=== PATIENT | female | born 1950 | race Caucasian/White ===

== ENCOUNTER → 2016-04-09 | Day surgery (SDC) | payer MEDICARE ==
[~2016-04-09] MED LIST: ALPR.25 PO; BUPIVACAINE HCL PF 0.75% 30 ML VIAL ONE; BUPR300T PO; COEN50CH CHEW; ESTR1TAB PO; LYRI100C PO; MULT1CHW33 PO; PROPOFOL 200 MG/20 ML AMP IV ONE; ROSU5 PO; SALM50I INH; TRIAMCINOLONE ACETONIDE 40 MG/ML VIAL NB ONE; WELLBUTRIN PO; methylPREDNISolone ACETATE 40 MG/ML VIAL I-LESIONAL ONE
--- NOTE | 2016-04-09 09:55 | M6 ---
cc: JOANNE SANTORO M.D. DATE 04/09/2016 DATE OF 1950 PROCEDURE Right T12-L1 transforaminal injection. History and physical was completed and signed. Consent was signed. Procedure site was marked. Medications were listed and reconciled. Pain score was recorded. Allergies were noted. Time out was taken. Fluoroscopy time was recorded where applicable. Sedation was administered or directed by Dr. Santoro. The patient was given oxygen. The patient was monitored by a registered nurse. Total procedure time was greater than 15 minutes. PROCEDURE NOTE IV was started. Blood pressure cuff, pulse oximeter and EKG were applied. The patient was placed in the prone position on a Kee table, sedated with small amounts of propofol titrated to effect. Vital signs were monitored and remained stable throughout the procedure. The thoracic area was prepped with alcohol and 10% Betadine solution, draped with sterile drapes. Fluoroscopy was used to visualize the T12-L1 neural foramen. Then a 3-1/2-inch, 22-gauge Chiba needle was advanced to make bony contact with the right twelfth rib and then gently redirected off the inferior margin of the rib. There was negative aspiration for blood or any other type of fluid and the patient was given 2 mL of Marcaine 0.75%, 20 mg of Kenalog and 20 mg of Depo-Medrol. Following the procedure the patient was taken to the recovery room with stable vital signs, neurologically intact. WMD MYKEL Rodriguez/DELTA /9:46 AM /9:51 AM
== END | disposition home or self-care (01) ==
LOC: PHSDC 07:58
PROVIDERS: ATTEND Pain Medicine Interventional Pain Medicine
DX: M54.14 Radiculopathy, thoracic region (principal)
CPT/HCPCS: 64479; 77003; 99152; J1030; J3301

== ENCOUNTER → 2016-05-30 | Outpatient (CLI) | payer MEDICARE ==
[~2016-05-30] MED LIST changes: -BUPIVACAINE HCL PF 0.75% 30 ML VIAL ONE; -PROPOFOL 200 MG/20 ML AMP IV ONE; -TRIAMCINOLONE ACETONIDE 40 MG/ML VIAL NB ONE; -WELLBUTRIN PO; -methylPREDNISolone ACETATE 40 MG/ML VIAL I-LESIONAL ONE
[2016-05-30 09:54] LABS: ALKALINE PHOSPHATASE 86 U/L (45-117); ALT (GPT) 38 U/L (10-53); ANION GAP 7 MEQ/L (5-15); AST (GOT) 24 U/L (15-37); BICARBONATE 28.4 MEQ/L (21.0-32.0); BLOOD UREA NITROGEN 10 MG/DL (7-18); CHLORIDE 108 MEQ/L (98-107); GLOMERULAR FILTRATION RATE 60 ML/MIN (>89); GLUCOSE,FASTING 104 MG/DL (74-99); HDL CHOLESTEROL 77.1 MG/DL (40.0-60.0); LDL CHOLESTEROL 88 MG/DL (0-99); POTASSIUM 4.1 MEQ/L (3.5-5.1); SODIUM (NA) 143 MEQ/L (136-145); TOTAL BILIRUBIN ADULT 0.5 MG/DL (0.2-1.0)
== END ==
LOC: PLAB 07:09
PROVIDERS: ATTEND Internal Medicine Cardiovascular Disease
DX: R07.89 Other chest pain (principal); E78.5 Hyperlipidemia, unspecified; I25.10 Atherosclerotic heart disease of native coronary artery without angina pectoris; Z72.0 Tobacco use
CPT/HCPCS: 36415; 80053; 80061; 82306

== ENCOUNTER → 2016-06-22 | Day surgery (SDC) | payer MEDICARE ==
[~2016-06-22] MED LIST changes: +BUPIVACAINE HCL PF 0.75% 30 ML VIAL ONE; +PROPOFOL 200 MG/20 ML AMP IV ONE; +TRIAMCINOLONE ACETONIDE 40 MG/ML VIAL NERV BLOCK ONE; +methylPREDNISolone ACETATE 40 MG/ML VIAL I-LESIONAL ONE
--- NOTE | 2016-06-24 20:01 | M6 ---
cc: JOANNE SANTORO M.D. DATE: 06/22/2016. DATE OF : 1950 PROCEDURE PERFORMED: Fluoroscopically-guided right T12 selective nerve root injection. DESCRIPTION OF THE PROCEDURE IN DETAIL: History and physical was completed and signed. Consent was signed. Procedure site was marked. Medications were listed and reconciled. Pain score was recorded. Allergies were noted. Time out was taken. Fluoroscopy time was recorded where applicable. Sedation was administered or directed by Dr. Santoro. The patient was given oxygen. The patient was monitored by a registered nurse. Total procedure time was greater than 15 minutes. IV was started, blood pressure cuff, pulse oximeter and EKG were applied. The patient was placed in the prone position on a Kee table and sedated with small amounts of propofol titrated to effect. Vital signs were monitored and remained stable throughout the procedure. The thoracic and lumbar areas were prepped with alcohol and 10% Betadine solution and draped with sterile drapes. Fluoroscopy was used to visualize the right twelfth rib. Then approximately 5 cm from the midline, a 3-1/2-inch 22-gauge Chiba needle was advanced down to the rib and then gently redirected off the inferior border of the rib. There was negative aspiration for blood or any other type of fluid and the patient was given 3 mL of Marcaine 0.75% which contained 20 mg of Depo-Medrol and 20 mg of Kenalog. Following the procedure, the patient was taken to the recovery room with stable vital signs neurologically intact. She will be evaluated immediately and with followup to determine if she has a subjective decrease her usual pain and a corresponding objective increase her functional capabilities. 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 W. MD MYKEL Mukherjee/YUAN /8:15 AM /7:57 PM
== END | disposition home or self-care (01) ==
LOC: PHSDC 07:03
PROVIDERS: ATTEND Pain Medicine Interventional Pain Medicine
DX: M54.6 Pain in thoracic spine (principal)
CPT/HCPCS: 64479; 99152; J1030; J3301

== ENCOUNTER → 2016-09-12 | Day surgery (SDC) | payer MEDICARE ==
[~2016-09-12] MED LIST changes: +AMOX250C3 PO; -BUPIVACAINE HCL PF 0.75% 30 ML VIAL ONE; +CALTCHW5 PO; +LIDOCAINE HCL 1% 30 ML VIAL INFIL ONE; +MEPERIDINE HCL 25 MG/ML VIAL IV ONE; +MIDAZOLAM HCL 2 MG/2 ML VIAL IV ONE; +SODIUM CHLORIDE 0.9% 10 ML VIAL ONE; -methylPREDNISolone ACETATE 40 MG/ML VIAL I-LESIONAL ONE
--- NOTE | 2016-09-12 08:50 | M6 ---
cc: JOANNE SANTORO M.D. DATE: 09/12/2016 DATE OF : 1950 PROCEDURE Radiofrequency rhizotomy right T12 dorsal root ganglion. PROCEDURE NOTE History and physical was completed and signed. Consent was signed. Procedure site was marked. Medications were listed and reconciled. Pain score was recorded. Allergies were noted. Timeout was taken. Fluoroscopy time was recorded where applicable. Sedation was administered or directed by Dr. Santoro. The patient was given oxygen. The patient was monitored by a registered nurse. Total procedure time was greater than 15 minutes. An IV was started, blood pressure cuff, pulse oximeter and EKG were applied. The patient was placed in the prone position on a Kee table, sedated with small amounts of propofol and Demerol titrated to effect. Vital signs were monitored and remained stable throughout the procedure. The thoracic area was prepped with alcohol and 10% Betadine solution, draped with sterile drapes. Fluoroscopy was used in both the AP and lateral projection to visualize the T12-L1 neural foramen. The skin was infiltrated with 1% Xylocaine using a 27-gauge needle. Then an insulated 20-gauge radiofrequency needle with a 5 mm tip was advanced into the dorsal cephalad quadrant of the neural foramen. Thermal lesions were made at 69 degrees x100 seconds. Two lesions were made. This was followed by injection of 40 mg of Kenalog. Following this the patient was taken to the recovery room with stable vital signs, neurologically intact. W. MD MYKEL Mukherjee/JEAN CLAUDE /7:49 AM /8:42 AM
--- NOTE | 2016-09-12 14:05 | RADRPT ---
EXAM DATE/TIME: 09/12/2016 07:52 [facility] COMPARISON: No previous studies available for comparison. INDICATIONS : Radio Frequency lesioning right T12 nerve root block MEDICAL HISTORY : None. SURGICAL HISTORY : None. ENCOUNTER: Initial ACUITY: 1 day PAIN SCORE: Non-responsive. LOCATION: Right Thoracic FINDINGS: 2 fluoroscopic hold images of the thoracolumbar spine. Assuming the last rib-bearing vertebral body i s T12. Radiofrequency probe projects over the cephalad aspect of the right T12-L1 neuroforamina. CONCLUSION: 1. Intraprocedural fluoroscopic localization images, as above. Eliseo Yoder MD on September 12, 2016 at 14:01 Board Certified Radiologist. This report was verified electronically.
== END | disposition home or self-care (01) ==
LOC: PHSDC 06:33
PROVIDERS: ATTEND Pain Medicine Interventional Pain Medicine
DX: M54.6 Pain in thoracic spine (principal)
CPT/HCPCS: 64633; 72070; 99152; J2175; J2250; J3301

== ENCOUNTER 2016-09-17 09:58 | Emergency (ER) | payer MEDICARE ==
[~2016-09-17] VITALS: Ht 157.5 cm; Wt 65.0 kg
[~2016-09-17 09:58] MED LIST changes: -LIDOCAINE HCL 1% 30 ML VIAL INFIL ONE; -MEPERIDINE HCL 25 MG/ML VIAL IV ONE; -MIDAZOLAM HCL 2 MG/2 ML VIAL IV ONE; -PROPOFOL 200 MG/20 ML AMP IV ONE; -SODIUM CHLORIDE 0.9% 10 ML VIAL ONE; -TRIAMCINOLONE ACETONIDE 40 MG/ML VIAL NERV BLOCK ONE
[2016-09-17 10:04] VITALS: BP 138/62; PULSE 75; RESP 16; TEMP 98.1; O2SAT 92
[2016-09-17] MEDS ORDERED: SODIUM CHLORIDE 0.9% FLUSH 10 ML FLUSH IV FLUSH PRN (10:45)
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
[2016-09-17 10:53] VITALS: O2SAT 98
[2016-09-17 10:59] LABS: AUTOMATED NEUTROPHIL # 4.1 TH/MM3 (1.8-7.7); BASOPHIL # 0.1 TH/MM3 (0-0.2); BASOPHIL % 1.3 % (0.0-2.0); EOSINOPHIL # 0.1 TH/MM3 (0-0.4); EOSINOPHIL % 1.5 % (0.0-4.0); HEMATOCRIT 46.5 % (35.0-46.0); HEMO FLAGS DIFF FINAL; LYMPH % 31.2 % (9.0-44.0); LYMPHOCYTE # 2.1 TH/MM3 (1.0-4.8); MEAN CELL VOLUME 91.9 FL (80.0-100.0); MEAN CORPUSCULAR HEMOGLOBIN 31.3 PG (27.0-34.0); MEAN CORPUSCULAR HGB CONC 34.1 % (32.0-36.0); MONO % 6.2 % (0.0-8.0); NEUT % 59.8 % (16.0-70.0); PLATELET COUNT 266 TH/MM3 (150-450); RED BLOOD COUNT 5.06 MIL/MM3 (4.00-5.30); RED CELL DISTRIBUTION WIDTH 11.6 % (11.6-17.2); WHITE BLOOD COUNT 6.8 TH/MM3 (4.0-11.0)
[2016-09-17 11:07] LABS: CHLORIDE 106 MEQ/L (98-107); POTASSIUM 3.4 MEQ/L (3.5-5.1); SODIUM (NA) 140 MEQ/L (136-145)
[2016-09-17 11:11] LABS: ANION GAP 4 MEQ/L (5-15); BLOOD UREA NITROGEN 11 MG/DL (7-18)
[2016-09-17 11:13] LABS: ALT (GPT) 37 U/L (10-53); AST (GOT) 25 U/L (15-37)
[2016-09-17 11:14] LABS: GLOMERULAR FILTRATION RATE 64 ML/MIN (>89)
[2016-09-17 11:15] LABS: TOTAL BILIRUBIN ADULT 0.6 MG/DL (0.2-1.0)
[2016-09-17 11:16] LABS: ALKALINE PHOSPHATASE 69 U/L (45-117)
[2016-09-17] MEDS ORDERED: IOHEXOL 350 MG/ML 10 ML VIAL (for RAD DIAG) IV ONE (11:38)
[2016-09-17 11:41] LABS: BLOOD, URINE NEG (NEG); GLUCOSE,URINE NEG (NEG); KETONE, URINE NEG (NEG); NITRITE,URINE NEG (NEG)
[2016-09-17 11:43] LABS: COMMENT (UR) CULT NOT INDICATED; CULTURE IF INDICATED CULT NOT INDICATED; METHOD OF COLLECTION CLEAN CATCH; SQUAMOUS EPITHELIAL CELL URINE 0-5 /hpf (0-5); URINE COLOR YELLOW (YELLW/STRAW)
--- NOTE | 2016-09-17 11:53 | RADRPT ---
EXAM DATE/TIME: 09/17/2016 11:25 [facility] COMPARISON: CT ABDOMEN & PELVIS W CONTRAST, August 16, 2012, 7:53. INDICATIONS : Right mid abdominal pressure when standing. IV CONTRAST: 90 cc Omnipaque 350 (iohexol) IV ORAL CONTRAST: No oral contrast ingested. RADIATION DOSE: 12.87 CTDIvol (mGy) MEDICAL HISTORY : Hypercholesterolemia. SURGICAL HISTORY : Tubal ligation. ENCOUNTER: Initial ACUITY: 4 - 6 days PAIN SCALE: 4/10 LOCATION: Right middle TECHNIQUE: Volumetric scanning of the abdomen and pelvis was performed. Using automated exposure control and ad justment of the mA and/or kV according to patient size, radiation dose was kept as low as reasonably achievable to obtain optimal diagnostic quality images. DICOM format image data is available electro nically for review and comparison. FINDINGS: LOWER LUNGS: Minimal bibasilar parenchymal changes are evident. LIVER: Homogeneous density without lesion. There is no dilation of the biliary tree. No calcified gallston es. SPLEEN: Normal size without lesion. PANCREAS: Within normal limits. ADRENAL GLANDS: Within normal limits. KIDNEYS: Normal in size and shape. There is no mass, stone, or hydronephrosis.. VASCULAR: There is no aortic aneurysm. BOWEL/MESENTERY: The stomach, small bowel, and colon demonstrate no acute abnormality. There is no free intraperitone al air or fluid. RETROPERITONEUM: There is no lymphadenopathy. BLADDER: No wall thickening or mass. REPRODUCTIVE: Uterus is prominent with prominent endometrium in a 66 year-old. Extensive prominent ovarian veins are evident. ABDOMINAL WALL: Within normal limits. INGUINAL: There is no lymphadenopathy or hernia. MUSCULOSKELETAL: Mild degenerative changes are seen in the lower lumbar spine. Congenital variation. CONCLUSION: Negative for acute process. I do not see an etiology for the abdominal pain. Minimal bibasilar pare nchymal changes. Neftali Dumont MD FACR on September 17, 2016 at 11:47 Board Certified Radiologist. This report was verified electronically.
[2016-09-17 12:16] VITALS: BP 141/71; PULSE 74; RESP 16; O2SAT 92
== END 2016-09-17 12:36 | disposition home or self-care (01) ==
LOC: PHED 09:58
DX: R10.33 Periumbilical pain (principal); Z87.891 Personal history of nicotine dependence
CPT/HCPCS: 74177; 80053; 81001; 83690; 85025; 99284; Q9967

== ENCOUNTER → 2016-11-05 | Outpatient (CLI) | payer MEDICARE ==
[~2016-11-05] MED LIST changes: -ALPR.25 PO; -AMOX250C3 PO; -CALTCHW5 PO; -COEN50CH CHEW; -MULT1CHW33 PO; +ROBA500T PO
== END ==
LOC: PLAB 10:21
PROVIDERS: ATTEND Family Medicine
DX: E55.9 Vitamin D deficiency, unspecified (principal)
CPT/HCPCS: 36415; 82306

== ENCOUNTER → 2016-11-07 | Outpatient (CLI) | payer MEDICARE ==
--- NOTE | 2016-11-16 11:26 | RSPPFT ---
DATE OF PROCEDURE: 11/07/16 COMMENTS: VOLUMES DYNAMIC: FVC normal; FEV1 mildly reduced. STATIC: RV very mildly increased; FRC and TLC normal. FLOWS: FEV1% moderately reduced; FEF 25-75 severely reduced. DIFFUSION; Moderately reduced. FLOW VOLUME LOOP: Pattern of variable intrathoracic airways obstruction. IMPRESSION: Moderate obstructive ventilatory defect with reduction in diffusion consistent with emphysema. There is improvement post-bronchodilator. Airways resistance is increased.
== END ==
LOC: HRSP 08:45
PROVIDERS: ATTEND Internal Medicine
DX: J44.9 Chronic obstructive pulmonary disease, unspecified (principal)
CPT/HCPCS: 94060; 94620; 94726; 94729

== ENCOUNTER 2016-11-28 12:08 | Emergency (ER) | payer MEDICARE ==
[~2016-11-28] VITALS: Ht 157.5 cm; Wt 65.0 kg
[~2016-11-28 12:08] MED LIST changes: -ROBA500T PO; -SALM50I INH
[2016-11-28 12:09] VITALS: BP 145/72; PULSE 89; RESP 18; TEMP 98.4; O2SAT 97
[2016-11-28] MEDS ORDERED: SALM50I INH (12:54)
[2016-11-28] MEDS ORDERED: KETOROLAC TROMETHAMINE 30 MG/ML (IVP) VIAL IVP ONE (13:15)
[2016-11-28] MEDS ORDERED: SODIUM CHLORIDE 0.9% FLUSH 10 ML FLUSH IV FLUSH PRN (13:15)
[2016-11-28 13:52] LABS: BLOOD, URINE NEG (NEG); GLUCOSE,URINE NEG (NEG); KETONE, URINE NEG (NEG); NITRITE,URINE NEG (NEG); SQUAMOUS EPITHELIAL CELL URINE <1 /hpf (0-5); TRANSITIONAL EPI CELLS, URINE <1 /hpf; URINE COLOR YELLOW (YELLW/STRAW)
[2016-11-28 13:52] LABS: AUTOMATED NEUTROPHIL # 3.4 TH/MM3 (1.8-7.7); BASOPHIL % 0.6 % (0.0-2.0); EOSINOPHIL # 0.1 TH/MM3 (0-0.4); EOSINOPHIL % 2.3 % (0.0-4.0); HEMATOCRIT 47.3 % (35.0-46.0); HEMO FLAGS DIFF FINAL; LYMPH % 31.9 % (9.0-44.0); LYMPHOCYTE # 1.9 TH/MM3 (1.0-4.8); MEAN CORPUSCULAR HEMOGLOBIN 32.1 PG (27.0-34.0); MEAN CORPUSCULAR HGB CONC 34.5 % (32.0-36.0); MONO % 6.8 % (0.0-8.0); NEUT % 58.4 % (16.0-70.0); PLATELET COUNT 190 TH/MM3 (150-450); RED BLOOD COUNT 5.09 MIL/MM3 (4.00-5.30); RED CELL DISTRIBUTION WIDTH 12.1 % (11.6-17.2); WHITE BLOOD COUNT 5.8 TH/MM3 (4.0-11.0)
[2016-11-28 13:53] LABS: COMMENT (UR) CULT NOT INDICATED; CULTURE IF INDICATED CULT NOT INDICATED
--- NOTE | 2016-11-28 14:12 | PD ---
HPI Chief Complaint: Flank/Kidney Pain Time Seen by Provider: 12:56 Travel History International Travel<30 days: No Contact w/Intl Traveler<30days: No Traveled to known affect area: No History of Present Illness HPI 66-year-old female here with left flank pain 2 days. Patient denies the pain as constant, nonradiating, no alleviating factors. She denies fever, chest pain , shortness of breath, nausea, vomiting, diarrhea, dysuria. No previous kidney stones. Symptom severity is moderate. Pain 6/10. PFSH Past Medical History Blood Disorders: No Anxiety: No Depression: Yes Cancer: No Cardiovascular Problems: No High Cholesterol: Yes Diabetes: No Diminished Hearing: No Endocrine: No Genitourinary: No Hepatitis: No Hiatal Hernia: No Immune Disorder: No Musculoskeletal: No Neurologic: No Psychiatric: No Reproductive: No Respiratory: Yes (FLOATING RIB SYNDROM/BRONCHETISIS) Immunizations Current: No Thyroid Disease: No Tubal Ligation: Yes Past Surgical History Abdominal Surgery: No AICD: No Cardiac Surgery: Yes (CATH ONLY) Ear Surgery: No Endocrine Surgery: No Eye Surgery: No Genitourinary Surgery: No Gynecologic Surgery: No Joint Replacement: No Oral Surgery: No Pacemaker: No Thoracic Surgery: No Tonsillectomy: Yes Other Surgery: Yes (Cyst removed from RT hand) Social History Alcohol Use: Yes (WEEKENDS) Tobacco Use: No (QUIT JAN 2012) Substance Use: No Allergies-Medications (Allergen,Severity, Reaction): Coded Allergies: levofloxacin (Unverified Allergy, Intermediate, FACIAL SWELLING, RASH, ) Reported Meds & Prescriptions Reported Meds & Active Scripts Active Bupropion HCl ER 24 HR (Bupropion HCl) 300 Mg Tab 300 Mg PO DAILY Mimvey Lo (Estradiol-Norethindrone) 0.5-1.0 Mg Tab 0.5 Mg PO DAILY Lyrica (Pregabalin) 100 Mg Cap 100 Mg PO BID Reported Serevent Diskus Inh (Salmeterol Xinafoate) 50 Mcg/Act Aero 50 Mcg INH BID Crestor (Rosuvastatin Calcium) 5 Mg Tab 10 Mg PO HS Review of Systems Except as stated in HPI: all other systems reviewed are Neg General / Constitutional: No: Fever Eyes: No: Visual changes HENT: No: Headaches Cardiovascular: No: Chest Pain or Discomfort Respiratory: No: Shortness of Breath Skin: No Rash Physical Exam Narrative GENERAL: Alert, well-appearing female in mild distress SKIN: Focused skin assessment warm/dry. No rash HEAD: Atraumatic. Normocephalic. EYES: Pupils equal and round. No scleral icterus. No injection or drainage. ENT: No nasal bleeding or discharge. Mucous membranes pink and moist. NECK: Trachea midline. No JVD. CARDIOVASCULAR: Regular rate and rhythm. No murmur appreciated. RESPIRATORY: No accessory muscle use. Clear to auscultation. Breath sounds equal bilaterally. GASTROINTESTINAL: Abdomen soft, non-tender, nondistended. BACK: No rash. No point tenderness on palpation of the spine. + Mild CVA tenderness MUSCULOSKELETAL: No obvious deformities. No clubbing. No cyanosis. No edema. Data Data Last Documented VS Vital Signs Date Time Temp Pulse Resp B/P (MAP) Pulse Ox O2 Delivery O2 Flow Rate FiO2 11/28/16 14:54 18 11/28/16 12:09 98.4 89 145/72 (96) 97 Room Air Orders Orders Basic Metabolic Panel (Bmp) (11/28/16 13:02) Complete Blood Count With Diff (11/28/16 13:02) Urinalysis - C+S If Indicated (11/28/16 13:02) Ct Abd/Pel W/O Iv Contrast (11/28/16 13:02) Iv Access Insert/Monitor (11/28/16 13:02) Ecg Monitoring (11/28/16 13:02) Oximetry (11/28/16 13:02) Sodium Chloride 0.9% Flush (Ns Flush) (11/28/16 13:15) Ketorolac Inj (Toradol Inj) (11/28/16 13:15) Ed Discharge Order (11/28/16 15:08) Labs Laboratory Tests Test 11/28/16 13:25 11/28/16 13:35 Urine Color YELLOW Urine Turbidity CLEAR Urine pH 6.0 Urine Specific [place] 1.017 Urine Protein NEG mg/dL Urine Glucose (UA) NEG mg/dL Urine Ketones NEG mg/dL Urine Occult Blood NEG Urine Nitrite NEG Urine Bilirubin NEG Urine Urobilinogen 2.0 MG/DL Urine Leukocyte Esterase NEG Urine RBC LESS THAN 1 /hpf Urine WBC 1 /hpf Urine Squamous Epithelial Cells <1 /hpf Urine Transitional Epithelial Cells <1 /hpf Microscopic Urinalysis Comment CULT NOT INDICATED White Blood Count 5.8 TH/MM3 Red Blood Count 5.09 MIL/MM3 Hemoglobin 16.3 GM/DL Hematocrit 47.3 % Mean Corpuscular Volume 93.0 FL Mean Corpuscular Hemoglobin 32.1 PG Mean Corpuscular Hemoglobin Concent 34.5 % Red Cell Distribution Width 12.1 % Platelet Count 190 TH/MM3 Mean Platelet Volume 6.6 FL Neutrophils (%) (Auto) 58.4 % Lymphocytes (%) (Auto) 31.9 % Monocytes (%) (Auto) 6.8 % Eosinophils (%) (Auto) 2.3 % Basophils (%) (Auto) 0.6 % Neutrophils # (Auto) 3.4 TH/MM3 Lymphocytes # (Auto) 1.9 TH/MM3 Monocytes # (Auto) 0.4 TH/MM3 Eosinophils # (Auto) 0.1 TH/MM3 Basophils # (Auto) 0.0 TH/MM3 CBC Comment DIFF FINAL Differential Comment Blood Urea Nitrogen 12 MG/DL Creatinine 0.81 MG/DL Random Glucose 87 MG/DL Calcium Level 10.0 MG/DL Sodium Level 142 MEQ/L Potassium Level 4.0 MEQ/L Chloride Level 108 MEQ/L Carbon Dioxide Level 28.4 MEQ/L Anion Gap 6 MEQ/L Estimat Glomerular Filtration Rate 70 ML/MIN [facility] Medical Decision Making Medical Screen Exam Complete: Yes Emergency Medical Condition: Yes Interpretation(s) UA: No infection CBC: Unremarkable BMP: Unremarkable CT abdomen and pelvis: No acute abnormality Differential Diagnosis Nephrolithiasis, pyelonephritis, herpes zoster, musculoskeletal back pain Narrative Course 66-year-old female here with left flank pain 2 days. On exam patient has mild left CVA tenderness. She denies fever, chills, chest pain, shortness breath, nausea, vomiting, dysuria. Diagnosis Primary Impression: Flank pain Referrals: Primary Care Physician Additional Instructions: Take [id number] Motrin 600 800 mg every 6-8 hours as needed for pain. Take the muscle relaxers as prescribed. Follow-up the primary doctor Scripts Methocarbamol (Robaxin) 500 Mg Tab 500 MG PO TID for Muscle Spasm, #15 TAB 0 Refills Prov: Barbara Brandon 11/28/16 Disposition: 01 DISCHARGE HOME Condition: Stable Barbara Brandon Nov 28, 2016 14:12
[2016-11-28 14:14] LABS: BICARBONATE 28.4 MEQ/L (21.0-32.0)
--- NOTE | 2016-11-28 14:51 | RADRPT ---
EXAM DATE/TIME: 11/28/2016 14:06 [facility] COMPARISON: No previous studies available for comparison. INDICATIONS : Left middle back pain for three days ORAL CONTRAST: No oral contrast ingested. RADIATION DOSE: 10.43 CTDIvol (mGy) MEDICAL HISTORY : Cardiovascular disease. SURGICAL HISTORY : Tubal ligation. ENCOUNTER: Initial ACUITY: 3 days PAIN SCALE: 10/10 LOCATION: Left Abdomen TECHNIQUE: Volumetric scanning of the abdomen and pelvis was performed. Using automated exposure control and ad justment of the mA and/or kV according to patient size, radiation dose was kept as low as reasonably achievable to obtain optimal diagnostic quality images. DICOM format image data is available electro nically for review and comparison. FINDINGS: LOWER LUNGS: Linear scarring in the bases bilaterally particularly anteriorly on the left. Mild bronchiectasis is seen involving the basilar segments as well. LIVER: Homogeneous density without lesion. There is no dilation of the biliary tree. No calcified gallston es. SPLEEN: Normal size without lesion. PANCREAS: Within normal limits. KIDNEYS: Normal in size and shape. There is no mass, stone, or hydronephrosis. ADRENAL GLANDS: Within normal limits. VASCULAR: There is no aortic aneurysm. BOWEL/MESENTERY: The stomach, small bowel, and colon demonstrate no acute abnormality. There is no free intraperitone al air or fluid. ABDOMINAL WALL: Within normal limits. RETROPERITONEUM: There is no lymphadenopathy. BLADDER: No wall thickening or mass. REPRODUCTIVE: Within normal limits. INGUINAL: There is no lymphadenopathy or hernia. MUSCULOSKELETAL: Either congenital lack of fusion or postsurgical changes involving the posterior elements at L5. A bi fid spinous process seen at L3. CONCLUSION: 1. No acute abnormality. Dago Lovelace Jr., MD on November 28, 2016 at 14:40 Board Certified Radiologist. This report was verified electronically.
[2016-11-28 14:54] VITALS: RESP 18
[2016-11-28] MEDS ORDERED: ROBA500T PO (15:43)
--- NOTE | 2016-11-28 15:43 | PD ---
Data Data Last Documented VS Vital Signs Date Time Temp Pulse Resp B/P (MAP) Pulse Ox O2 Delivery O2 Flow Rate FiO2 11/28/16 14:54 18 11/28/16 12:09 98.4 89 145/72 (96) 97 Room Air Orders Orders Basic Metabolic Panel (Bmp) (11/28/16 13:02) Complete Blood Count With Diff (11/28/16 13:02) Urinalysis - C+S If Indicated (11/28/16 13:02) Ct Abd/Pel W/O Iv Contrast (11/28/16 13:02) Iv Access Insert/Monitor (11/28/16 13:02) Ecg Monitoring (11/28/16 13:02) Oximetry (11/28/16 13:02) Sodium Chloride 0.9% Flush (Ns Flush) (11/28/16 13:15) Ketorolac Inj (Toradol Inj) (11/28/16 13:15) Ed Discharge Order (11/28/16 15:08) Labs Laboratory Tests Test 11/28/16 13:25 11/28/16 13:35 Urine Color YELLOW Urine Turbidity CLEAR Urine pH 6.0 Urine Specific [place] 1.017 Urine Protein NEG mg/dL Urine Glucose (UA) NEG mg/dL Urine Ketones NEG mg/dL Urine Occult Blood NEG Urine Nitrite NEG Urine Bilirubin NEG Urine Urobilinogen 2.0 MG/DL Urine Leukocyte Esterase NEG Urine RBC LESS THAN 1 /hpf Urine WBC 1 /hpf Urine Squamous Epithelial Cells <1 /hpf Urine Transitional Epithelial Cells <1 /hpf Microscopic Urinalysis Comment CULT NOT INDICATED White Blood Count 5.8 TH/MM3 Red Blood Count 5.09 MIL/MM3 Hemoglobin 16.3 GM/DL Hematocrit 47.3 % Mean Corpuscular Volume 93.0 FL Mean Corpuscular Hemoglobin 32.1 PG Mean Corpuscular Hemoglobin Concent 34.5 % Red Cell Distribution Width 12.1 % Platelet Count 190 TH/MM3 Mean Platelet Volume 6.6 FL Neutrophils (%) (Auto) 58.4 % Lymphocytes (%) (Auto) 31.9 % Monocytes (%) (Auto) 6.8 % Eosinophils (%) (Auto) 2.3 % Basophils (%) (Auto) 0.6 % Neutrophils # (Auto) 3.4 TH/MM3 Lymphocytes # (Auto) 1.9 TH/MM3 Monocytes # (Auto) 0.4 TH/MM3 Eosinophils # (Auto) 0.1 TH/MM3 Basophils # (Auto) 0.0 TH/MM3 CBC Comment DIFF FINAL Differential Comment Blood Urea Nitrogen 12 MG/DL Creatinine 0.81 MG/DL Random Glucose 87 MG/DL Calcium Level 10.0 MG/DL Sodium Level 142 MEQ/L Potassium Level 4.0 MEQ/L Chloride Level 108 MEQ/L Carbon Dioxide Level 28.4 MEQ/L Anion Gap 6 MEQ/L Estimat Glomerular Filtration Rate 70 ML/MIN MDM Supervised Visit with ROGELIO: Yes Narrative Course The history, exam, and medical decision-making in the associated mid-level provider note were completed with my assistance. I reviewed and agree with the findings presented. I attest that I had a [id number] encounter with the patient on the same day, and personally performed and documented my assessment and findings in the medical record. *My assessment and Findings: 58 year-old woman presents emergency department with flank pain. She is a history of back problems but this really felt different than her previous symptoms. No urinary complaints. Urine is negative for blood and scan doesn't show any stones. She looks overall well. I don't see any skin sensitivity or rashes suggest zoster. Recommend continue medications and outpatient follow-up. Diagnosis Primary Impression: Flank pain Referrals: Primary Care Physician Additional Instruction: Take [id number] Motrin 600 800 mg every 6-8 hours as needed for pain. Take the muscle relaxers as prescribed. Follow-up the primary doctor Disposition: 01 DISCHARGE HOME Condition: Stable Kp Faye MD Nov 28, 2016 15:43
[2016-11-28 15:45] VITALS: BP 154/72
== END 2016-11-28 16:16 | disposition home or self-care (01) ==
LOC: NEPD 12:08
DX: R10.9 Unspecified abdominal pain (principal); E78.00 Pure hypercholesterolemia, unspecified; Z87.39 Personal history of other diseases of the musculoskeletal system and connective tissue; Z86.59 Personal history of other mental and behavioral disorders
CPT/HCPCS: 74176; 80048; 81001; 85025; 96374; 99285; J1885

== ENCOUNTER → 2017-05-03 | Outpatient (CLI) | payer MEDICARE ==
[~2017-05-03] MED LIST changes: +ALPR.25 PO; +ROBA500T PO; +SALM50I INH
[2017-05-03 10:40] LABS: AUTOMATED NEUTROPHIL # 2.6 TH/MM3 (1.8-7.7); BASOPHIL % 0.7 % (0.0-2.0); EOSINOPHIL # 0.1 TH/MM3 (0-0.4); EOSINOPHIL % 3.3 % (0.0-4.0); HEMATOCRIT 45.7 % (35.0-46.0); HEMOGLOBIN 15.7 GM/DL (11.6-15.3); LYMPH % 32.2 % (9.0-44.0); LYMPHOCYTE # 1.4 TH/MM3 (1.0-4.8); MEAN CELL VOLUME 91.8 FL (80.0-100.0); MEAN CORPUSCULAR HEMOGLOBIN 31.6 PG (27.0-34.0); MEAN CORPUSCULAR HGB CONC 34.4 % (32.0-36.0); MEAN PLATELET VOLUME 6.5 FL (7.0-11.0); MONO % 6.4 % (0.0-8.0); MONOCYTE # 0.3 TH/MM3 (0-0.9); NEUT % 57.4 % (16.0-70.0); PLATELET COUNT 211 TH/MM3 (150-450); RED BLOOD COUNT 4.98 MIL/MM3 (4.00-5.30); RED CELL DISTRIBUTION WIDTH 12.9 % (11.6-17.2); WHITE BLOOD COUNT 4.5 TH/MM3 (4.0-11.0)
[2017-05-03 10:55] LABS: ALBUMIN 4.1 GM/DL (3.4-5.0); AST (GOT) 23 U/L (15-37); BICARBONATE 27.9 MEQ/L (21.0-32.0); BLOOD UREA NITROGEN 13 MG/DL (7-18); CHLORIDE 108 MEQ/L (98-107); CREATININE 0.96 MG/DL (0.50-1.00); GLOMERULAR FILTRATION RATE 58 ML/MIN (>89); GLUCOSE,FASTING 108 MG/DL (74-99); SODIUM (NA) 143 MEQ/L (136-145)
[2017-05-03 10:56] LABS: CHOLESTEROL 151 MG/DL (120-200)
[2017-05-03 11:00] LABS: ALKALINE PHOSPHATASE 73 U/L (45-117); ALT (GPT) 28 U/L (10-53); CHOLESTEROL/ HDL RATIO 1.81 RATIO; LDL CHOLESTEROL 52 MG/DL (0-99); TOTAL BILIRUBIN ADULT 0.5 MG/DL (0.2-1.0); TOTAL PROTEIN 7.4 GM/DL (6.4-8.2); TRIGLYCERIDES 82 MG/DL (42-150)
== END ==
LOC: PLAB 08:16
PROVIDERS: ATTEND Family Medicine
DX: J47.9 Bronchiectasis, uncomplicated (principal); E78.2 Mixed hyperlipidemia
CPT/HCPCS: 36415; 80053; 80061; 85025

== ENCOUNTER 2017-11-25 20:08 | Observation (INO) ==
[2017-11-25] MEDS ORDERED: MethylPREDNISolone Sod Succinate Inj 125 MG/2 ML Vial IV.PUSH ONE (20:18)
--- NOTE | 2017-11-25 20:24 | ED ---
HPI General Chief Complaint: Shortness of Breath/Dyspnea Stated Complaint: SOB Time Seen by Provider: 11/25/17 20:17 Source: patient and family (spouse) Mode of arrival: ambulatory Limitations: no limitations History of Present Illness 67-year-old female presents to the emergency department by private transportation the care of her spouse for complaint of increasing worsening shortness of breath for the past 3 days and acutely since arriving by plane from [facility] this evening. Patient states she has had symptoms for approximately 1 week mild symptoms prior to leaving on plane flight to [place]. Patient denies any fever has had congested cough and wheezing. Patient did use rescue inhaler prior to arrival to the emergency department. Patient has had no hemoptysis. Patient does not complain of chest pain. Patient had no lower extremity pain or swelling. Flu vaccine is current. In triage reportedly room air O2 saturation 89%. Patient placed on supplemental oxygen and states she does not use supplemental oxygen at home. Complaint: Reports shortness of breath and cough Onset (ago): day(s) Context: Reports recent travel Severity: severe Consistency/Duration: constant and progressively worsening Relieving factors: nothing Exacerbating factors: exertion, movement, coughing and inspiration Known history of: Reports other (Bronchiectasis;) Associated symptoms: Reports cough, wheezing and chest congestion; Denies chest pain, pain with inspiration, fever, sputum production, lower extremity pain, paresthesias, palpitations, sense of impending doom, dizziness and lightheadedness Treatment prior to arrival: Reports bronchodilator Related Data Home oxygen amount: none Home Medications Medication Instructions Recorded Confirmed albuterol sulfate 2 puff INHALATION Q4-6H PRN 11/25/17 11/25/17 albuterol sulfate 2.5 mg INHALATION TID PRN 11/25/17 11/25/17 Allergies Allergy/AdvReac Type Severity Reaction Status Date / Time levofloxacin Allergy Intermediate FACIAL Verified 11/25/17 20:17 SWELLING, RASH Review of Systems ROS: all other systems reviewed are negative PMFSH History History Provided By: Patient, Family Member and Medical Record Medical History Medical History Bronchiectasis (Acute) COPD (chronic obstructive pulmonary disease) (Acute) Social History Social History Substance History: No History of Abuse Smoking Status: Former smoker How Often Do You Have a Drink Containing Alcohol: 2 to 4 times a month Recent Out of Country Travel within the Last 8 Weeks: No Exam Narrative Exam Narrative: GENERAL: Well-nourished, well-developed patient. In moderate- severe respiratory distress able to speak in short sentences. SKIN: Focused skin assessment warm/dry. HEAD: Normocephalic. EYES: No scleral icterus. No injection or drainage. NECK: Supple, trachea midline. No JVD or lymphadenopathy. CARDIOVASCULAR: Regular rate and rhythm without murmurs, gallops, or rubs. RESPIRATORY: Breath sounds equal bilaterally diminished, expiratory wheeze, rub. No accessory muscle use. GASTROINTESTINAL: Abdomen soft, non-tender, nondistended. MUSCULOSKELETAL: No cyanosis, or edema. BACK: Nontender without obvious deformity. No CVA tenderness. Course Initial Documented Vital Signs Pulse Oximetry 89 L 11/25/17 20:10 Last Documented Vital Signs Temperature 98.0 F 11/25/17 20:18 Pulse Rate 79 11/25/17 23:10 Respiratory Rate 20 11/25/17 23:10 Blood Pressure 159/81 H 11/25/17 23:10 Pulse Oximetry 93 L 11/25/17 23:10 Medical Decision Making MDM Narrative Medical decision making narrative: 67-year-old female with long-standing history of bronchiectasis with exacerbation placed on fancy wire drawer IV access obtained patient given supplement oxygen DuoNeb formerly [facility] x3 Solu-Medrol 125 mg IV administered Lab values are normal range Patient clinically improved CT pulmonary angiogram negative for PE extensive bibasilar bronchiectasis Patient given trial off of supplemental oxygen and desaturates to 89% will keep in the hospital overnight for ongoing oxygen supplementation and nebulized treatments with steroids. Patient given one-time dose of azithromycin and Rocephin. Discussed with Dr hernandez for admission Medical Screen Exam Complete: Yes Emergency Medical Condition: Yes Differential Diagnosis Differential Diagnosis: Dyspnea, COPD exacerbation, bronchiectasis exacerbation , pneumonia, PE, CHF, ACS Medical Records Medical records reviewed: Yes I reviewed the patient's medical records. Lab Data Lab results reviewed: Yes I reviewed the patient's lab results. Result diagrams: 11/25/17 21:15 11/25/17 21:15 Lab Results 11/25/17 11/25/17 11/25/17 Range/Units 21:15 21:15 21:15 CBC w Diff Auto diff final WBC 6.6 (4.0-11.0) th/mm3 RBC 4.73 (4.00-5.30) mil/mm3 Hgb 14.8 (11.6-15.3) gm/dL Hct 44.1 (35.0-46.0) % MCV 93.2 (80.0-100.0) fL MCH 31.3 (27.0-34.0) pg MCHC 33.6 (32.0-36.0) % RDW 12.5 (11.6-17.2) % Plt Count 248 (150-450) th/mm3 MPV 7.3 (7.0-11.0) fL Neut % (Auto) 53.3 (16.0-70.0) % Lymph % (Auto) 32.6 (9.0-44.0) % [place] % (Auto) 5.0 (0.0-8.0) % Eos % (Auto) 7.4 H (0.0-4.0) % Baso % (Auto) 1.7 (0.0-2.0) % Neut # (Auto) 3.6 (1.8-7.7) th/mm3 Lymph # (Auto) 2.1 (1.0-4.8) th/mm3 [place] # (Auto) 0.3 (0.0-0.9) th/mm3 Eos # (Auto) 0.5 H (0.0-0.4) th/mm3 Baso # (Auto) 0.1 (0.0-0.2) th/mm3 WBC Differential . Differential Comment . PT 11.7 H (9.8-11.6) sec INR 1.2 Ratio APTT 29.0 (24.3-30.1) sec Sodium 142 (136-145) meq/L Potassium 3.5 (3.5-5.1) meq/L Chloride 108 H (98-107) meq/L Carbon Dioxide 25.8 (21.0-32.0) meq/L Anion Gap 8 (5-15) meq/L BUN 11 (7-18) mg/dL Creatinine 0.90 (0.50-1.00) mg/dL Estimated GFR 62 L (>89) mL/min Random Glucose 86 (74-106) mg/dL Calcium 8.8 (8.5-10.1) mg/dL Magnesium 2.2 (1.5-2.5) mg/dL Total Bilirubin 0.4 (0.2-1.0) mg/dL AST 50 H (15-37) U/L ALT 41 (10-53) U/L Alkaline Phosphatase 87 (45-117) U/L Total Creatine Kinase 636 H (26-192) U/L CK-MB (CK-2) 3.4 (0.5-3.6) ng/mL CK-MB (CK-2) % 0.5 (0.0-4.0) % Troponin I Less than 0.02 L (0.02-0.05) ng/mL B-Natriuretic Peptide (0-100) pg/mL Total Protein 7.0 (6.4-8.2) g/dL Albumin 4.0 (3.4-5.0) g/dL 11/25/17 Range/Units 21:15 CBC w Diff WBC (4.0-11.0) th/mm3 RBC (4.00-5.30) mil/mm3 Hgb (11.6-15.3) gm/dL Hct (35.0-46.0) % MCV (80.0-100.0) fL MCH (27.0-34.0) pg MCHC (32.0-36.0) % RDW (11.6-17.2) % Plt Count (150-450) th/mm3 MPV (7.0-11.0) fL Neut % (Auto) (16.0-70.0) % Lymph % (Auto) (9.0-44.0) % [place] % (Auto) (0.0-8.0) % Eos % (Auto) (0.0-4.0) % Baso % (Auto) (0.0-2.0) % Neut # (Auto) (1.8-7.7) th/mm3 Lymph # (Auto) (1.0-4.8) th/mm3 [place] # (Auto) (0.0-0.9) th/mm3 Eos # (Auto) (0.0-0.4) th/mm3 Baso # (Auto) (0.0-0.2) th/mm3 WBC Differential Differential Comment PT (9.8-11.6) sec INR Ratio APTT (24.3-30.1) sec Sodium (136-145) meq/L Potassium (3.5-5.1) meq/L Chloride (98-107) meq/L Carbon Dioxide (21.0-32.0) meq/L Anion Gap (5-15) meq/L BUN (7-18) mg/dL Creatinine (0.50-1.00) mg/dL Estimated GFR (>89) mL/min Random Glucose (74-106) mg/dL Calcium (8.5-10.1) mg/dL Magnesium (1.5-2.5) mg/dL Total Bilirubin (0.2-1.0) mg/dL AST (15-37) U/L ALT (10-53) U/L Alkaline Phosphatase (45-117) U/L Total Creatine Kinase (26-192) U/L CK-MB (CK-2) (0.5-3.6) ng/mL CK-MB (CK-2) % (0.0-4.0) % Troponin I (0.02-0.05) ng/mL B-Natriuretic Peptide 17 (0-100) pg/mL Total Protein (6.4-8.2) g/dL Albumin (3.4-5.0) g/dL Imaging Data Radiologist's impression: Chest X-Ray 11/25/17 20:18 CONCLUSION: No acute cardiopulmonary disease. Chest CTA 11/25/17 21:56 CONCLUSION: No evidence of pulmonary embolism. Bibasilar bronchiectasis ECG Data EKG Prior to Arrival: No Prior ECG tracings: not available for review Interpretation: EKG: Normal sinus rhythm rate [address] elevation injury pattern or ectopy noted QS is identified septally age-indeterminate appears remote Discharge Plan Discharge Disposition Patient Disposition: 30 Still Patient Discharge Condition Condition: Stable Discharge Details Diagnosis: Dyspnea, Bronchiectasis with acute exacerbation Physicians Team ED Provider: Kiara Heredia Primary Care Provider: UNKNOWN, Rxs /Orders / Referrals /Forms Prescriptions: No Action albuterol sulfate 2.5 mg /3 mL (0.083 %) Solution For Nebulization 2.5 mg INHALATION TID PRN (Reason: Shortness Of Breath Or Wheezing) RF: 0 albuterol sulfate 90 mcg/actuation Hfa Aerosol Inhaler 2 puff INHALATION Q4-6H PRN (Reason: Shortness Of Breath Or Wheezing) RF: 0 Discharge Interventions Interventions: Vital Signs Last Done: 11/25/17 23:10 Status ED Status: With Doctor
[2017-11-25] MEDS ORDERED: Acetaminophen 325 MG Tablet PO ONE (21:10)
[2017-11-25 21:48] LABS: Baso # (Auto) 0.1 th/mm3 (0.0-0.2); Baso % (Auto) 1.7 % (0.0-2.0); Eos # (Auto) 0.5 th/mm3 (0.0-0.4); Eos % (Auto) 7.4 % (0.0-4.0); Hematocrit 44.1 % (35.0-46.0); Hemoglobin 14.8 gm/dL (11.6-15.3); Lymph # (Auto) 2.1 th/mm3 (1.0-4.8); Lymph % (Auto) 32.6 % (9.0-44.0); Mean Corpuscular HGB Conc 33.6 % (32.0-36.0); Mean Corpuscular Hemoglobin 31.3 pg (27.0-34.0); Mean Corpuscular Volume 93.2 fL (80.0-100.0); Mean Platelet Volume 7.3 fL (7.0-11.0); Mono # (Auto) 0.3 th/mm3 (0.0-0.9); Neut # (Auto) 3.6 th/mm3 (1.8-7.7); Neut % (Auto) 53.3 % (16.0-70.0); Platelet Count 248 th/mm3 (150-450); Red Blood Count 4.73 mil/mm3 (4.00-5.30); Red Cell Distribution Width 12.5 % (11.6-17.2); White Blood Count 6.6 th/mm3 (4.0-11.0)
[2017-11-25 21:56] LABS: Chloride 108 meq/L (98-107); Potassium 3.5 meq/L (3.5-5.1); Sodium 142 meq/L (136-145)
--- NOTE | 2017-11-25 21:56 | XR ---
EXAM DATE: 11/25/2017 8:18 PM EDT AGE/SEX: 67 years / Female INDICATIONS: Shortness of breath. CLINICAL DATA: This is the patient's initial encounter. Patient reports that signs and symptoms have been present for 2 days and indicates a pain score of 0/10. MEDICAL/SURGICAL HISTORY: . Bronchiectasis. Abdominal aortic aneurysm repair. COMPARISON: None.. FINDINGS: A single AP view of the chest demonstrates the lungs to be symmetrically aerated without evidence of mass, infiltrate or effusion. The cardiomediastinal contours are unremarkable. Osseous structures a re intact. There are overlying electrocardiogram leads and oxygen tubing. CONCLUSION: No acute cardiopulmonary disease. Electronically signed by: Alin Smith MD 11/25/2017 9:55 PM EDT
[2017-11-25 22:01] LABS: Calcium 8.8 mg/dL (8.5-10.1)
[2017-11-25 22:02] LABS: Anion Gap 8 meq/L (5-15); Blood Urea Nitrogen 11 mg/dL (7-18); Carbon Dioxide 25.8 meq/L (21.0-32.0); Glucose,Random 86 mg/dL (74-106); Magnesium 2.2 mg/dL (1.5-2.5)
[2017-11-25 22:05] LABS: Alanine Aminotransferase 41 U/L (10-53); Aspartate Aminotransferase 50 U/L (15-37); Glomerular Filtration Rate 62 mL/min (>89)
[2017-11-25 22:08] LABS: Alkaline Phosphatase 87 U/L (45-117); Creatine Kinase 636 U/L (26-192)
[2017-11-25 22:15] LABS: INR 1.2 Ratio; Prothrombin Time 11.7 sec (9.8-11.6)
[2017-11-25 22:20] LABS: CKMB Percent 0.5 % (0.0-4.0); Creatine Kinase MB 3.4 ng/mL (0.5-3.6)
--- NOTE | 2017-11-25 23:51 | CT ---
EXAM DATE: 11/25/2017 10:22 PM EDT AGE/SEX: 67 years / Female INDICATIONS: Shortness of breath. Dyspnea. History of Bronchiectasis. CLINICAL DATA: This is the patient's initial encounter. Patient reports that signs and symptoms have been present for 4 - 6 days and indicates a pain score of 0/10. MEDICAL/SURGICAL HISTORY: Chronic obstructive pulmonary disease. None. RADIATION DOSE: 10.79 CTDI (mGy) COMPARISON: No prior exams available for comparison. TECHNIQUE: Volumetric scanning was performed using a multi-row detector CT scanner during bolus infu licha of 100 ml Omnipaque 350 (iohexol) nonionic water-soluble contrast as a single exam dose. The da ta was post processed with a variety of visualization algorithms including full volume maximum intens ity projection and sliding thin slab reformation. Using automated exposure control and adjustment of the mA and/or kV according to patient size, radiation dose was kept as low as reasonably achievable to obtain optimal diagnostic quality images. DICOM format image data is available electronically for review and comparison. FINDINGS: Examination of the pulmonary vasculature demonstrates good filling of the main, lobar and segmental b ranches. There are no filling defects to suggest pulmonary embolism. Multiplanar reconstructions are also unremarkable. There is critical scarring with bronchiectasis in both lower lobes right greater than left. Examinati on of the mediastinum demonstrates no abnormally enlarged lymph nodes by CT criteria. No axillary or hilar abnormalities are identified. Coronary artery calcifications are not present. CONCLUSION: No evidence of pulmonary embolism. Bibasilar bronchiectasis Electronically signed by: Jeff Nunez MD 11/25/2017 11:50 PM EDT
[2017-11-26] MEDS ORDERED: Azithromycin Inj 500 MG in Sodium Chlor 0.9% Inj 250 ML IV.SIG ONE (00:15)
[2017-11-26] MEDS ORDERED: Bisacodyl 10 MG Supp RECTAL PRN (00:35)
[2017-11-26] MEDS ORDERED: Acetaminophen 325 MG Tablet PO PRN (00:35)
[2017-11-26] MEDS ORDERED: Sodium Chlor 0.9% Inj 500 ML IV.SIG SCH (01:00)
[2017-11-26] MEDS: Heparin - SQ 10,000 UNITS/ML Vial SQ SCH ×3 (01:01→21:38)
[2017-11-26] MEDS: MethylPREDNISolone Sod Succinate Inj 125 MG/2 ML Vial IV.PUSH SCH ×3 (01:01→13:11)
[2017-11-26] MEDS ORDERED: Senna/Docusate Sodium 8.6/50 MG Tablet PO SCH (09:00)
[2017-11-26] MEDS: Azithromycin 250 MG Tablet PO SCH (11:52)
[2017-11-26] MEDS: MethylPREDNISolone Sod Succinate Inj 40 MG/ML Vial IV.PUSH SCH ×2 (13:08→21:37)
--- NOTE | 2017-11-26 13:16 | P.HP ---
History of Present Illness Primary Care Physician: UNKNOWN Chief Complaint: Shortness of breath History of Present Illness: 67-year-old female for past medical history bronchiectasis, hypertension presented to the ED for evaluation of worsening shortness of breath times 3 days duration. However patient states she has been feeling short of breath since Saturday of last week prior to his trip to [place] from which patient returned yesterday and presented to the ED for evaluation of dyspnea. Patient report dry cough denies any symptoms of wheezing or febrile episode. She also denies any hemoptysis. When patient presented in the ED, she was found to have oxygen saturations in 89%. She denies any chest pain. Although patient reports some improvement of symptoms since admission, however appears to be short winded with ambulation. - Diagnosis (1) Bronchiectasis with acute exacerbation Review of Systems All other systems reviewed negative except as stated in [facility] - History History Provided By: Patient - Medical History Medical History: Medical History (Last Reviewed 11/25/17 @ 22:24 by Jaz Martin RN) Bronchiectasis COPD (chronic obstructive pulmonary disease) - Family History Family History: Family History (Last Updated 11/26/17 @ 13:13 by Mark Boyd MD) Other Colon cancer - Tobacco History Second Hand Smoke Exposure: No Tobacco Use In Past 30 Days: No Smoking Status: Former smoker Tobacco Type: Cigarettes - Alcohol History How Often Do You Have a Drink Containing Alcohol: 2 to 3 times a week - Substance Use History Substance History: No History of Abuse - Travel History Recent Travel Out of the Country Within the Last 8 Weeks: No - Immunization History Tetanus Immunization: Unsure Medications and Allergies Active Medications: Active Medications Acetaminophen (Tylenol) 650 mg PO Q4H PRN PRN Reason: Temp > 100.4 Al Hydroxide/Mg Hydroxide (Milk Of Magnkaylyn Liq) 30 ml PO Q12H PRN PRN Reason: Mild Constipation Albuterol (Duoneb Neb (Errol)) 1 ampul NEB Q4HR NEB ERROL Last Admin: 11/26/17 11:22 Dose: 1 ampul Azithromycin (Zithromax) 250 mg PO DAILY ERROL Last Admin: 11/26/17 11:52 Dose: 250 mg Bisacodyl (Dulcolax Supp) 10 mg RECTAL DAILY PRN PRN Reason: SEVERE CONSITIPATION Budesonide/Formoterol Fumarate (Symbicort 160/4.5 Mcg Inh) 2 puff INH BID [facility] Guaifenesin (Mucinex Er) 600 mg PO BID [facility] Heparin Sodium (Porcine) (Heparin Inj) 5,000 units SQ Q12HR [facility] Last Admin: 11/26/17 09:25 Dose: 5,000 units Sodium Chloride (Ns Inj) 500 mls @ 0 mls/hr IV.SIG BOLUS [facility] Last Infusion: 11/26/17 01:35 Dose: Infused Lactulose (Lactulose Liq) 30 ml PO DAILY PRN PRN Reason: SEVERE CONSITIPATION Methylprednisolone Sodium Succinate (Solumedrol Inj) 20 mg IV.PUSH Q12HR [facility] Ondansetron HCl (Zofran Inj) 4 mg IV.PUSH Q6H PRN PRN Reason: NAUSEA OR VOMITING Sennosides (Senokot) 17.2 mg PO Q12H PRN PRN Reason: Moderate Constipation Sodium Chloride (Ns Flush) 2 ml IV.FLUSH BID [facility] Last Admin: 11/26/17 09:25 Dose: 2 ml Sodium Chloride (Ns Flush) 2 ml IV.FLUSH PRN PRN PRN Reason: FLUSH AFTER USING IV ACCESS Last Admin: 11/26/17 01:06 Dose: 2 ml Allergies Allergy/AdvReac Type Severity Reaction Status Date / Time levofloxacin Allergy Intermediate FACIAL Verified 11/25/17 20:17 SWELLING, RASH Home Medications Medication Instructions Recorded Confirmed Type albuterol sulfate 2 puff INHALATION Q4-6H PRN 11/25/17 11/25/17 History albuterol sulfate 2.5 mg INHALATION TID PRN 11/25/17 11/25/17 History Exam Vital signs: Vital Signs 11/25/17 20:10 11/25/17 20:11 11/25/17 20:18 Temperature 98.0 F Pulse Rate 83 Respiratory Rate 36 H Blood Pressure 145/105 H Pulse Oximetry 89 L 94 L 94 L 11/25/17 20:48 11/25/17 20:49 11/25/17 23:10 Temperature Pulse Rate 80 80 79 Respiratory Rate 20 20 Blood Pressure 159/81 H Pulse Oximetry 93 L 11/26/17 00:00 11/26/17 00:01 11/26/17 00:40 Temperature Pulse Rate 78 Respiratory Rate 20 Blood Pressure 159/81 H Pulse Oximetry 90 L 93 L 92 L 11/26/17 00:41 11/26/17 01:15 11/26/17 03:01 Temperature Pulse Rate 82 87 Respiratory Rate 20 20 Blood Pressure 152/80 H 156/84 H Pulse Oximetry 92 L 93 L 11/26/17 03:34 11/26/17 04:38 11/26/17 07:32 Temperature 97.8 F Pulse Rate 86 87 87 Respiratory Rate 24 12 Blood Pressure 112/73 Pulse Oximetry 94 L 11/26/17 07:33 11/26/17 08:00 11/26/17 09:00 Temperature Pulse Rate 85 Respiratory Rate Blood Pressure Pulse Oximetry 92 L 92 L 11/26/17 09:26 11/26/17 11:27 11/26/17 12:00 Temperature 96.9 F L Pulse Rate 92 H 89 92 H Respiratory Rate 22 16 31 H Blood Pressure 144/72 H 134/66 Pulse Oximetry 93 L 91 L 91 L Intake & Output 11/25/17 11/26/17 11/26/17 18:59 06:59 18:59 Intake Total 850 / 850 Balance 850 / 850 Weight 59.2 kg Intake: IV 850 / 850 Azithromycin Inj 500 MG In NS 250 / 250 Inj 250 ML @ 250 mls/hr IV.SIG ONCE ONE Rx#:[id number] NS Inj 500 ML @ Wide Open IV. 500 / 500 SIG BOLUS ERROL Rx#:[id number] Rocephin Inj 1,000 MG In NS Inj 100 / 100 100 ML @ 200 mls/hr IV.SIG ONCE ONE Rx#:[id number] Other: # Voids 1 Date of Last Bowel Movement 11/26/17 Weight On Admission 59.2 kg Narrative: GENERAL: NAD SKIN: Warm and dry. HEAD: Atraumatic. Normocephalic. EYES: Pupils equal and round. No scleral icterus. No injection or drainage. ENT: No nasal bleeding or discharge. Mucous membranes pink and moist. NECK: Trachea midline. No JVD. CARDIOVASCULAR: Regular rate and rhythm. RESPIRATORY: No accessory muscle use. Clear to auscultation. Breath sounds decrease bilaterally. GASTROINTESTINAL: Abdomen soft, non-tender, nondistended. Hepatic and splenic margins not palpable. MUSCULOSKELETAL: Extremities without clubbing, cyanosis, or edema. No obvious deformities. NEUROLOGICAL: Awake and alert. No obvious cranial nerve deficits. Motor grossly within normal limits. Five out of 5 muscle strength in the arms and legs. Normal speech. PSYCHIATRIC: Appropriate mood and affect; insight and judgment normal. Results - Labs CBC & Chem 7: 11/25/17 21:15 11/25/17 21:15 Labs: Laboratory Results - last 24 hr 11/25/17 11/25/17 11/25/17 21:15 21:15 21:15 CBC w Diff Auto diff final WBC 6.6 RBC 4.73 Hgb 14.8 Hct 44.1 MCV 93.2 MCH 31.3 MCHC 33.6 RDW 12.5 Plt Count 248 MPV 7.3 Neut % (Auto) 53.3 Lymph % (Auto) 32.6 Cascade % (Auto) 5.0 Eos % (Auto) 7.4 H Baso % (Auto) 1.7 Neut # (Auto) 3.6 Lymph # (Auto) 2.1 Cascade # (Auto) 0.3 Eos # (Auto) 0.5 H Baso # (Auto) 0.1 WBC Differential . Differential Comment . PT 11.7 H INR 1.2 APTT 29.0 Sodium 142 Potassium 3.5 Chloride 108 H Carbon Dioxide 25.8 Anion Gap 8 BUN 11 Creatinine 0.90 Estimated GFR 62 L Random Glucose 86 Calcium 8.8 Magnesium 2.2 Total Bilirubin 0.4 AST 50 H ALT 41 Alkaline Phosphatase 87 Total Creatine Kinase 636 H CK-MB (CK-2) 3.4 CK-MB (CK-2) % 0.5 Troponin I Less than 0.02 L B-Natriuretic Peptide Total Protein 7.0 Albumin 4.0 11/25/17 21:15 CBC w Diff WBC RBC Hgb Hct MCV MCH MCHC RDW Plt Count MPV Neut % (Auto) Lymph % (Auto) Cascade % (Auto) Eos % (Auto) Baso % (Auto) Neut # (Auto) Lymph # (Auto) Cascade # (Auto) Eos # (Auto) Baso # (Auto) WBC Differential Differential Comment PT INR APTT Sodium Potassium Chloride Carbon Dioxide Anion Gap BUN Creatinine Estimated GFR Random Glucose Calcium Magnesium Total Bilirubin AST ALT Alkaline Phosphatase Total Creatine Kinase CK-MB (CK-2) CK-MB (CK-2) % Troponin I B-Natriuretic Peptide 17 Total Protein Albumin - Imaging Impressions Chest X-Ray 11/25/17 20:18 CONCLUSION: No acute cardiopulmonary disease. Chest CTA 11/25/17 21:56 CONCLUSION: No evidence of pulmonary embolism. Bibasilar bronchiectasis Caprini VTE Risk Assessment Caprini VTE Risk Assessment: Moderate/High Risk (score >= 2) Caprini Risk Assessment Model: Point Value = 1 Point Value = 2 Point Value = 3 Point Value = 5 Age 41-60 Minor surgery BMI > 25 kg/m2 Swollen legs Varicose veins or History of unexplained or recurrent spontaneous Oral contraceptives or hormone replacement Sepsis (< 1 month) Serious lung disease, including pneumonia (< 1 month) Abnormal pulmonary function Acute myocardial infarction Congestive heart failure (< 1 month) History of inflammatory bowel disease Medical patient at bed rest Age 61-74 Arthroscopic surgery Major open surgery (> 45 min) Laparoscopic surgery (> 45 min) Malignancy Confined to bed (> 72 hours) Immobilizing plaster cast Central venous access Age >= 75 History of VTE Family history of VTE Factor V Leiden Prothrombin [id number] Lupus anticoagulant Anticardiolipin antibodies Elevated serum homocysteine Heparin-induced thrombocytopenia Other congenital or acquired thrombophilia Stroke (< 1 month) Elective arthroplasty Hip, pelvis, or leg fracture Acute spinal cord injury (< 1 month) Prophylaxis Regimen: Total Risk Factor Score Risk Level Prophylaxis Regimen 0-1 Low Early ambulation 2 Moderate Order ONE of the following: *Sequential Compression Device (SCD) *Heparin 5000 units SQ BID 3-4 Higher Order ONE of the following medications: *Heparin 5000 units SQ TID *Enoxaparin/Lovenox 40 mg SQ daily (WT < 150 kg, CrCl > 30 mL/min) *Enoxaparin/Lovenox 30 mg SQ daily (WT < 150 kg, CrCl > 10-29 mL/min) *Enoxaparin/Lovenox 30 mg SQ BID (WT < 150 kg, CrCl > 30 mL/min) AND/OR *Sequential Compression Device (SCD) 5 or more Highest Order ONE of the following medications: *Heparin 5000 units SQ TID (Preferred with Epidurals) *Enoxaparin/Lovenox 40 mg SQ daily (WT < 150 kg, CrCl > 30 mL/min) *Enoxaparin/Lovenox 30 mg SQ daily (WT < 150 kg, CrCl > 10-29 mL/min) *Enoxaparin/Lovenox 30 mg SQ BID (WT < 150 kg, CrCl > 30 mL/min) AND *Sequential Compression Device (SCD) Assessment and Plan - Assessment (1) Bronchiectasis with acute exacerbation Code(s): J47.1 - Bronchiectasis with (acute) exacerbation Status: Acute - Plan 67-year-old female with Bronchiectasis with acute exacerbation CTA chest noted and reviewed by me without any PE Chest x-ray noted and reviewed by me with finding of No acute cardiopulmonary disease. Patient currently on Solu-Medrol IV 60 mg every 6 hours, with decreased to 20 mg every 12 hours and likely taper down prior to discharge Continue with short acting bronchodilator, start Symbicort, azithromycin 250 mg daily Maintain oxygen saturation above 92% Pulmonary medicine consultation as needed History of hypertension, and other chronic medical conditions Resume outpatient medications DVT prophylaxis: SCDs
[2017-11-26] MEDS ORDERED: Tiotropium Bromide 18 MCG/ACT Inhaler INH SCH (14:00)
[2017-11-26] MEDS: Acetaminophen 325 MG Tablet PO PRN ×2 (15:43→19:49)
[2017-11-26] MEDS: Budesonide-Formoterol 160/4.5 MCG 6 GM Inhaler INH SCH ×2 (17:57→21:38)
--- NOTE | 2017-11-26 19:57 | ECG ---
Date Performed: 11/25/2017 Time Performed: 20:37:07 PTAGE: 67 years EKG: Sinus rhythm SEPTAL MYOCARDIAL INFARCTION Since previous tracing, no significant change noted ABNORMAL ECG PREVIOUS TRACING : 02/22/2012 11.12 DOCTOR: Luz Yu Interpretating Date/Time 11/26/2017 19:54:27
[2017-11-26] MEDS: guaiFENesin 600 MG ER Tablet PO SCH (21:37)
[2017-11-27 06:42] LABS: Baso % (Auto) 0.2 % (0.0-2.0); Eos % (Auto) 0.1 % (0.0-4.0); Hematocrit 42.2 % (35.0-46.0); Hemoglobin 14.7 gm/dL (11.6-15.3); Lymph # (Auto) 0.8 th/mm3 (1.0-4.8); Lymph % (Auto) 5.2 % (9.0-44.0); Mean Corpuscular HGB Conc 34.8 % (32.0-36.0); Mean Corpuscular Hemoglobin 32.4 pg (27.0-34.0); Mean Corpuscular Volume 93.1 fL (80.0-100.0); Mean Platelet Volume 6.6 fL (7.0-11.0); Mono # (Auto) 0.5 th/mm3 (0.0-0.9); Mono % (Auto) 3.6 % (0.0-8.0); Neut # (Auto) 13.3 th/mm3 (1.8-7.7); Neut % (Auto) 90.9 % (16.0-70.0); Platelet Count 209 th/mm3 (150-450); Red Blood Count 4.53 mil/mm3 (4.00-5.30); Red Cell Distribution Width 12.4 % (11.6-17.2); White Blood Count 14.6 th/mm3 (4.0-11.0)
[2017-11-27 06:52] LABS: Potassium 3.3 meq/L (3.5-5.1)
[2017-11-27 06:54] LABS: Calcium 8.8 mg/dL (8.5-10.1)
[2017-11-27 06:55] LABS: Carbon Dioxide 26.1 meq/L (21.0-32.0)
[2017-11-27] MEDS: MethylPREDNISolone Sod Succinate Inj 40 MG/ML Vial IV.PUSH SCH ×3 (08:08→22:23)
[2017-11-27] MEDS: Budesonide-Formoterol 160/4.5 MCG 6 GM Inhaler INH SCH ×2 (08:09→20:35)
[2017-11-27] MEDS: Heparin - SQ 10,000 UNITS/ML Vial SQ SCH ×2 (08:10→20:33)
[2017-11-27] MEDS: Azithromycin 250 MG Tablet PO SCH (08:10)
[2017-11-27] MEDS: guaiFENesin 600 MG ER Tablet PO SCH ×2 (08:10→20:33)
[2017-11-27] MEDS ORDERED: ALPRAZolam 0.25 MG Tablet PO PRN (09:06)
--- NOTE | 2017-11-27 09:09 | P.PNIM ---
Subjective Interval history: f/u; bronchiectasis in no acute distress. however still on two liters of oxygen via N/C. seems to be improving. no fever. Physical Exam Vital signs: Vital Signs 11/26/17 09:26 11/26/17 11:27 11/26/17 12:00 Temperature 96.9 F L Pulse Rate 92 H 89 92 H Respiratory Rate 22 16 31 H Blood Pressure 144/72 H 134/66 Pulse Oximetry 93 L 91 L 91 L 11/26/17 16:00 11/26/17 19:53 11/26/17 20:00 Temperature 97.8 F 97.0 F L Pulse Rate 99 H 97 H 92 H Respiratory Rate 22 18 16 Blood Pressure 147/73 H 135/74 Pulse Oximetry 95 92 L 11/26/17 20:42 11/26/17 23:31 11/27/17 00:00 Temperature 96.1 F L Pulse Rate 98 H 106 H Respiratory Rate 20 16 Blood Pressure 162/74 H Pulse Oximetry 92 L 94 L 11/27/17 03:38 11/27/17 07:38 Temperature Pulse Rate 93 H Respiratory Rate 20 Blood Pressure Pulse Oximetry 92 L Intake & Output 11/26/17 11/27/17 11/27/17 18:59 06:59 18:59 Other: Date of Last Bowel Movement 11/26/17 # Bowel Movements 3 - Constitutional no acute distress - Routine Respiratory Exam Present: CTA bilaterally (minimal wheezing.) - Routine Cardiovascular Exam Present: RRR - Routine Abdominal Exam Present: soft - Routine Extremities Exam Comments: no pedal edema. - Routine Neurological Exam Present: alert, oriented X3 Results - Labs CBC & Chem 7: 11/27/17 06:15 11/27/17 06:15 Laboratory Results - last 24 hr 11/27/17 11/27/17 06:15 06:15 CBC w Diff Auto diff final WBC 14.6 H RBC 4.53 Hgb 14.7 Hct 42.2 MCV 93.1 MCH 32.4 MCHC 34.8 RDW 12.4 Plt Count 209 MPV 6.6 L Neut % (Auto) 90.9 H Lymph % (Auto) 5.2 L Nolan % (Auto) 3.6 Eos % (Auto) 0.1 Baso % (Auto) 0.2 Neut # (Auto) 13.3 H Lymph # (Auto) 0.8 L Nolan # (Auto) 0.5 Eos # (Auto) 0.0 Baso # (Auto) 0.0 WBC Differential . Differential Comment . Sodium 143 Potassium 3.3 L Chloride 109 H Carbon Dioxide 26.1 Anion Gap 8 BUN 12 Creatinine 0.74 Estimated GFR 78 L Random Glucose 170 H Calcium 8.8 Assessment and Plan - Assessment (1) Bronchiectasis with acute exacerbation Code(s): J47.1 - Bronchiectasis with (acute) exacerbation Status: Acute - Plan Bronchiectasis with acute exacerbation CTA chest without any PE Chest x-ray with finding of No acute cardiopulmonary disease. Patient currently on Solu-Medrol 20 mg every 12 hours and likely taper down prior to discharge Continue with short acting bronchodilator, start Symbicort, azithromycin 250 mg daily Maintain oxygen saturation above 92% Pulmonary medicine consultation () leukocytosis- due to steroids- afebrile Hypokalemia; will replace. History of hypertension, and other chronic medical conditions Resumed outpatient medications DVT prophylaxis: SCDs Discharge Planning: possible tomorrow if stable. will consider walk test.
[2017-11-27] MEDS: Amoxicillin/Clavulanate 875/125 MG Tablet PO SCH (20:33)
[2017-11-28 00:29] VITALS: RESP 18
[2017-11-28] MEDS: MethylPREDNISolone Sod Succinate Inj 40 MG/ML Vial IV.PUSH SCH (05:44)
[2017-11-28 07:51] VITALS: PULSE 72
[2017-11-28] MEDS: Amoxicillin/Clavulanate 875/125 MG Tablet PO SCH (08:12)
[2017-11-28] MEDS: guaiFENesin 600 MG ER Tablet PO SCH (08:12)
[2017-11-28] MEDS: Azithromycin 250 MG Tablet PO SCH (08:12)
[2017-11-28] MEDS: Budesonide-Formoterol 160/4.5 MCG 6 GM Inhaler INH SCH (08:13)
[2017-11-28] MEDS: Heparin - SQ 10,000 UNITS/ML Vial SQ SCH (08:13)
--- NOTE | 2017-11-28 08:44 | P.PNIM ---
Subjective Interval history: f/u; bronchiectasis resting comfortably with no acute distress. says that she had a good sleep last night. no new complaints and wants to go home today. Physical Exam Vital signs: Vital Signs 11/27/17 11:32 11/27/17 11:33 11/27/17 12:00 Temperature 96.4 F L Pulse Rate 85 90 Respiratory Rate 15 20 Blood Pressure 140/68 Pulse Oximetry 90 L Pulse Oximetry [Exertion on Room Air] 87 L Pulse Oximetry [Exertion with Oxygen] 92 L Pulse Oximetry [Resting on Room Air] 90 L 11/27/17 15:47 11/27/17 16:00 11/27/17 19:46 Temperature 97.6 F Pulse Rate 80 96 H 100 H Respiratory Rate 15 20 16 Blood Pressure 130/58 L Pulse Oximetry 91 L 94 L Pulse Oximetry [Exertion on Room Air] Pulse Oximetry [Exertion with Oxygen] Pulse Oximetry [Resting on Room Air] 11/27/17 20:00 11/28/17 00:00 11/28/17 07:42 Temperature 97.8 F 97.1 F L Pulse Rate 95 H 84 72 Respiratory Rate 20 18 18 Blood Pressure 133/66 135/60 Pulse Oximetry 92 L 94 L 93 L Pulse Oximetry [Exertion on Room Air] Pulse Oximetry [Exertion with Oxygen] Pulse Oximetry [Resting on Room Air] Intake & Output 11/27/17 11/28/17 11/28/17 18:59 06:59 18:59 Intake Total 820 / 820 480 / 480 Balance 820 / 820 480 / 480 Weight 63 kg Intake: Oral 820 / 820 480 / 480 Other: # Voids 4 3 # Bowel Movements 0 - Constitutional no acute distress - Routine Respiratory Exam Present: CTA bilaterally - Routine Cardiovascular Exam Present: RRR - Routine Abdominal Exam Present: soft - Routine Extremities Exam Comments: no pedal edema. - Routine Neurological Exam Present: alert, oriented X3 Results - Labs CBC & Chem 7: 11/27/17 06:15 11/27/17 06:15 Laboratory Results - last 24 hr 11/27/17 15:45 C-Reactive Protein Less than 0.29 Total Protein (PEP) 6.5 - Procedures none. Assessment and Plan - Assessment (1) Bronchiectasis with acute exacerbation Code(s): J47.1 - Bronchiectasis with (acute) exacerbation Status: Acute - Plan Bronchiectasis with acute exacerbation- improving. CTA chest without any PE Chest x-ray with finding of No acute cardiopulmonary disease. Patient currently on Solu-Medrol 20 mg every 12 hours and will switch to prednisone and taper down prior to discharge Continue with short acting bronchodilator, started Symbicort. Continue with Augmentin upon discharge. Maintain oxygen saturation above 92% Pulmonary medicine consultation () leukocytosis- due to steroids- afebrile Hypokalemia; replaced. History of hypertension, and other chronic medical conditions Resumed outpatient medications DVT prophylaxis: SCDs Discharge Planning: dc home today after repeated walk test. see med list. f/u;pcp and pulmonary. d/w the patient and .
--- NOTE | 2017-11-28 08:51 | P.DS ---
Date of admission: 11/26/17 00:32 Primary care physician: UNKNOWN Brief History from admission: 67-year-old female for past medical history bronchiectasis, hypertension presented to the ED for evaluation of worsening shortness of breath times 3 days duration. However patient states she has been feeling short of breath since Saturday of last week prior to his trip to [place] from which patient returned yesterday and presented to the ED for evaluation of dyspnea. Patient report dry cough denies any symptoms of wheezing or febrile episode. She also denies any hemoptysis. When patient presented in the ED, she was found to have oxygen saturations in 89%. She denies any chest pain. Although patient reports some improvement of symptoms since admission, however appears to be short winded with ambulation. DS: Diagnosis - Discharge Diagnosis (1) Bronchiectasis with acute exacerbation Status: Acute DS: Medications - Discharge Medications Prescriptions: amoxicillin-pot clavulanate 1 tab PO Q12HR 7 Days tab budesonide-formoterol [Symbicort] 2 puff INH BID #1 g prednisone 5 mg PO DIRECTED 10 Days #10 tab DS: Summary Hospital Course: patient was admitted with bronchiectasis exacerbation. she was started on antibiotics, IV steroids and neb treatment. she was evaluated by dairy chemist. her clinical condition improved. she will be discharged on oral antibiotic and prednisone with f/u with her pcp and dairy chemist. - Time Spent with Patient Total time spent providing and/or coordinating discharge services: Less than 30 minutes - Quality: VTE Deep Vein Thrombosis/Pulmonary Embolism Present on Admission: No Exam Vital signs: Vital Signs 11/27/17 11:32 11/27/17 11:33 11/27/17 12:00 Temperature 96.4 F L Pulse Rate 85 90 Respiratory Rate 15 20 Blood Pressure 140/68 Pulse Oximetry 90 L Pulse Oximetry [Exertion on Room Air] 87 L Pulse Oximetry [Exertion with Oxygen] 92 L Pulse Oximetry [Resting on Room Air] 90 L 11/27/17 15:47 11/27/17 16:00 11/27/17 19:46 Temperature 97.6 F Pulse Rate 80 96 H 100 H Respiratory Rate 15 20 16 Blood Pressure 130/58 L Pulse Oximetry 91 L 94 L Pulse Oximetry [Exertion on Room Air] Pulse Oximetry [Exertion with Oxygen] Pulse Oximetry [Resting on Room Air] 11/27/17 20:00 10/18/18 00:00 11/28/17 07:42 Temperature 97.8 F 97.1 F L Pulse Rate 95 H 84 72 Respiratory Rate Blood Pressure 133/66 135/60 Pulse Oximetry 92 L 94 L 93 L Pulse Oximetry [Exertion on Room Air] Pulse Oximetry [Exertion with Oxygen] Pulse Oximetry [Resting on Room Air] Intake & Output 11/27/17 11/28/17 11/28/17 18:59 06:59 18:59 Intake Total 820 / 820 480 / 480 Balance 820 / 820 480 / 480 Weight 63 kg Intake: Oral 820 / 820 480 / 480 Other: # Voids 4 3 # Bowel Movements 0 - Constitutional no acute distress - Routine Respiratory Exam Present: CTA bilaterally - Routine Cardiovascular Exam Present: RRR - Routine Abdominal Exam Present: soft - Routine Extremities Exam Comments: no pedal edema. - Routine Neurological Exam Present: alert, oriented X3 Results Procedures completed during hospitalization: none. Labs on day of discharge: Labs from last 24 hours 11/27/17 15:45 C-Reactive Protein Less than 0.29 Total Protein (PEP) 6.5 Albumin (PEP) Pending Albumin/Globulin Ratio Pending [id number] Pending [id number] Pending Beta Globulins Pending Gamma Globulins Pending PEP Pathologist Comment Pending - Impressions ITS Impressions Chest X-Ray 11/25/17 20:18 CONCLUSION: No acute cardiopulmonary disease. Chest CTA 11/25/17 21:56 CONCLUSION: No evidence of pulmonary embolism. Bibasilar bronchiectasis Discharge Plan - Discharge Disposition Patient Disposition: 01 Discharge Home - Discharge Condition Condition: Stable - Discharge Order Discharge Orders: Discharge Order (Routine); Ordered 11/28/17 Ordered By: Bandar Mendes - Physicians Team Primary Care Provider: UNKNOWN, Attending Provider: Bandar Mendes Other Providers: Neftali Alcazar MD
[2017-11-28 09:03] VITALS: BP 143/94; TEMP 97.2
[2017-11-28 10:20] VITALS: O2SAT 88
--- NOTE | 2017-11-28 11:02 | MB ---
cc: Tatum Alcazar MD DATE: 11/28/2017 HISTORY OF PRESENT ILLNESS: Ms. Hutchinson is a 67-year-old white female, whom I have followed now for 4 years with bronchiectasis, COPD and alpha-1 deficiency. Over the course of the last several months, she has had increasing cough with congestion, has received a recent course of antibiotics and steroids and when I saw her on 10/16/2017, she was remarkably better. She traveled about a week ago to visit family and upon returning she had difficulty breathing, increased shortness of breath, a little chest tightness, some cough, but no purulent sputum. She came from the airport to the emergency room and was admitted. She had a CTA and there was no evidence of pulmonary embolism. She does have basilar bronchiectasis which is chronic. No obvious acute infiltrates. No sputum has been produced and her initial white count was normal. She was started on aerosolized bronchodilators, low dose of IV corticosteroids, and Zithromax. She is feeling better. She has had no hemoptysis. No fever, no increased edema, and no significant prior cardiovascular history. She has been previously seen at the [facility] and despite reduction in her alpha-1 level they did not recommend replacement therapy in light of the fact that at this age with no significant emphysema they did not feel it was indicated. PAST MEDICAL HISTORY: Congenital spina bifida. No cardiovascular disease. PAST SURGICAL HISTORY: Benign breast biopsies. No history of cancer. ALLERGIES: LEVAQUIN CAUSED FACIAL SWELLING AND SKIN RASH, ALTHOUGH SHE HAS BEEN TREATED WITH CIPRO AND TOLERATED THAT WELL. MEDICATIONS: Reviewed in the EMR. SOCIAL HISTORY: , living with her who is a pharmacist at [employer]. She smoked about 20 pack-years, but quit smoking in the year 1999. Rarely drinks alcohol. No animal exposures. REVIEW OF SYSTEMS: No abdominal complaints, reflux symptoms, or recent change in bowel habits. [place] PHYSICAL EXAMINATION: VITAL SIGNS: 98, 140/70, pulse is 80, respirations are 18 and unlabored. HEENT: Sclerae are anicteric. Mucous membranes are moist. NECK: Veins are flat. CHEST: Scattered diffuse wheezing in both lungs with some minimal basilar congestion. HEART: Regular rhythm. No harsh murmur. No peripheral edema, cyanosis or clubbing. DIAGNOSTIC DATA: CT as noted above. DISCUSSION: Ms. Hutchinson presents with what appears to be acute exacerbation of her underlying bronchiectasis/COPD. 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 I spoke with Dr. Mendes this morning. I would suggest she go home with her nebulizer 2-3 times a day along with a tapering course of prednisone, another week of Augmentin twice a day, and oxygen if she desaturates with a walk test. I will see her back in the office in 2 weeks. If things remain stable, we will reevaluate her maintenance regimen, which may need adjustment in light of recent exacerbations. I have also sent a followup serum protein electrophoresis as she did have a mildly decreased IgG back in 2013. Further diagnostic and/or therapeutic intervention will depend on response and followup in the office. R. MD ARACELIS Whitney/henrique , 09:43 AM , 09:50 AM
== END 2017-11-28 12:10 | disposition home or self-care (01) ==
LOC: PHEDA 20:08 → PHED 20:08 → PHEDA 11-26 03:13 → PHICU 11-26 03:20 → PH3 11-26 12:58
PROVIDERS: ADMIT Internal Medicine; ATTEND Internal Medicine
DX: E87.6 Hypokalemia; J47.1 Bronchiectasis with (acute) exacerbation; Q05.9 Spina bifida, unspecified; Z87.891 Personal history of nicotine dependence; D72.829 Elevated white blood cell count, unspecified; I10 Essential (primary) hypertension; T38.0X5A Adverse effect of glucocorticoids and synthetic analogues, initial encounter